=== PATIENT | female | born 1955 | race Two or more races ===

== ENCOUNTER 2018-03-07 15:03 | Emergency (ER) | payer OTHER ==
[~2018-03-07] VITALS: Ht 162.6 cm; Wt 81.6 kg
[2018-03-07] MEDS ORDERED: PNEU16DI2 (16:34)
[2018-03-07] MEDS ORDERED: CATAFLAN (16:34)
== END 2018-03-07 20:18 | disposition home or self-care (01) ==
LOC: ER 15:03
DX: R10.32 Left lower quadrant pain (principal)

== ENCOUNTER 2020-08-12 05:50 | Day surgery (SDC) | payer OTHER ==
[~2020-08-12 05:50] MED LIST: AMBIEN10 MG PO; CATAFLAN; COZAAR25 MG PO; PNEU16DI2
[2020-08-12] MEDS ORDERED: ULTRACET PO (08:12)
[2020-08-12] MEDS ORDERED: ALEVE220 M1 PO (08:12)
[2020-08-12] MEDS ORDERED: DUI500 PO (08:12)
== END 2020-08-12 11:40 | disposition home or self-care (01) ==
LOC: CIR.AMB 05:50
PROVIDERS: ATTEND Orthopaedic Surgery
DX: S83.232A Complex tear of medial meniscus, current injury, left knee, initial encounter (principal); S83.282A Other tear of lateral meniscus, current injury, left knee, initial encounter; M67.462 Ganglion, left knee; M23.42 Loose body in knee, left knee; Z20.822 Contact with and (suspected) exposure to COVID-19

== ENCOUNTER → 2021-03-04 14:27 | Outpatient (CLI) | payer OTHER ==
[~2021-03-04 14:27] MED LIST changes: +ALEVE220 M1 PO; +DUI500 PO; +ULTRACET PO
== END | disposition home or self-care (01) ==
LOC: LAB 14:27
PROVIDERS: ATTEND Specialist
DX: N61.1 Abscess of the breast and nipple (principal); I10 Essential (primary) hypertension

== ENCOUNTER 2021-03-08 06:00 | Day surgery (SDC) | payer OTHER | END 2021-03-08 13:50 | disposition home or self-care (01) | LOC: CIR.AMB 06:00 | PROVIDERS: ATTEND Specialist | DX: N61.1 Abscess of the breast and nipple (principal); Z20.822 Contact with and (suspected) exposure to COVID-19 ==

== ENCOUNTER 2021-04-20 09:53 | Outpatient (CLI) | payer OTHER | END 2021-04-20 10:03 | disposition home or self-care (01) | LOC: LAB 09:53 | PROVIDERS: ATTEND General Practice | DX: I10 Essential (primary) hypertension (principal); E11.9 Type 2 diabetes mellitus without complications; E55.9 Vitamin D deficiency, unspecified; N39.0 Urinary tract infection, site not specified; E03.8 Other specified hypothyroidism; E78.49 Other hyperlipidemia; Z12.11 Encounter for screening for malignant neoplasm of colon; D64.89 Other specified anemias ==

== ENCOUNTER 2021-04-21 10:58 | Outpatient (CLI) | payer OTHER | END 2021-04-21 11:06 | disposition home or self-care (01) | LOC: LAB 10:58 | PROVIDERS: ATTEND General Practice | DX: N39.0 Urinary tract infection, site not specified (principal); E11.9 Type 2 diabetes mellitus without complications; I10 Essential (primary) hypertension; E03.8 Other specified hypothyroidism; E55.9 Vitamin D deficiency, unspecified; Z12.11 Encounter for screening for malignant neoplasm of colon; E78.49 Other hyperlipidemia; D64.89 Other specified anemias ==

== ENCOUNTER 2022-08-07 17:06 | Emergency (ER) | payer OTHER ==
[~2022-08-07] VITALS: Ht 162.6 cm; Wt 72.6 kg
[2022-08-07] MEDS ORDERED: NEURONTIN300 MG PO (18:24)
== END 2022-08-07 22:35 | disposition home or self-care (01) ==
LOC: ER 17:06
DX: S79.812A Other specified injuries of left hip, initial encounter (principal); W18.30XA Fall on same level, unspecified, initial encounter; Y93.89 Activity, other specified; Y92.018 Other place in single-family (private) house as the place of occurrence of the external cause; S34.21XA Injury of nerve root of lumbar spine, initial encounter

== ENCOUNTER 2023-02-17 09:21 | Emergency (ER) | payer OTHER ==
[~2023-02-17] VITALS: Ht 160 cm; Wt 65.8 kg
[~2023-02-17 09:21] MED LIST changes: +NEURONTIN300 MG PO
== END 2023-02-17 17:51 | disposition home or self-care (01) ==
LOC: ER 09:21
DX: S39.82XA Other specified injuries of lower back, initial encounter (principal); W01.0XXA Fall on same level from slipping, tripping and stumbling without subsequent striking against object, initial encounter; Y93.89 Activity, other specified; Y92.018 Other place in single-family (private) house as the place of occurrence of the external cause; M48.56XA Collapsed vertebra, not elsewhere classified, lumbar region, initial encounter for fracture
CPT/HCPCS: 72100; 96372; 99284; J1885 ×2; J2360